=== PATIENT | female | born 1995 | race African-American/Black ===

== ENCOUNTER 2017-07-25 00:27 | Emergency (ER) | payer BC, MEDICAID, SELFPAY ==
--- NOTE | 2017-07-25 08:28 | RAD ---
PA AND LATERAL CHEST XRAY: DATE: 07/25/17. HISTORY: Productive cough for 1 week. COMPARISON: 05/19/13. FINDINGS: Cardiac silhouette and pulmonary vasculature are within normal limits. The lungs are clear. There h as been no interval change from prior study. IMPRESSION: No acute cardiopulmonary process. POS: [facility]
== END 2017-07-25 02:52 | disposition home or self-care (01) ==
LOC: ERS 00:27
DX: J06.9 Acute upper respiratory infection, unspecified (principal); J30.9 Allergic rhinitis, unspecified
CPT/HCPCS: 71020

== ENCOUNTER 2017-07-27 13:59 | Emergency (ER) | payer BC ==
[2017-07-27] MEDS ORDERED: Dexamethasone 10 MG/ML VIAL ONE (15:04)
== END 2017-07-27 15:13 | disposition home or self-care (01) ==
LOC: ERS 13:59
DX: J06.9 Acute upper respiratory infection, unspecified (principal); J45.909 Unspecified asthma, uncomplicated; Z79.899 Other long term (current) drug therapy
CPT/HCPCS: 96372; J1100

== ENCOUNTER 2017-08-27 10:26 | Emergency (ER) | payer BC ==
[2017-08-27] MEDS ORDERED: Ibuprofen 800 MG TAB ONE (11:21)
[2017-08-27] MEDS ORDERED: Acetaminophen 500 MG TAB ONE (11:21)
== END 2017-08-27 11:31 | disposition home or self-care (01) ==
LOC: ERS 10:26
DX: J11.1 Influenza due to unidentified influenza virus with other respiratory manifestations (principal); J45.909 Unspecified asthma, uncomplicated
CPT/HCPCS: 99283

== ENCOUNTER 2017-11-16 12:44 | Emergency (ER) | payer BC ==
[2017-11-16 13:10] LABS: Bilirubin Negative (Negative); Blood, Urine Large (Negative); Clarity TURBID (Clear); Glucose, Urine (Dipstick) Negative (Negative); Leukocyte Large (Negative); Nitrite Negative (Negative); Protein, Urine (Dipstick) 100 mg/dL (Neg-Trace); Specific Gravity, Urine 1.014 (1.002-1.036)
[2017-11-16 13:12] LABS: Bacteria/HPF Rare-Few HPF (None Seen); Hyaline Casts/LPF 0-3 HYALINE CAST LPF (0-3 Hyaline); Pathc Cast-AUWi Flag 0.87 (0-2.49); RBC/HPF GREATER THAN 50-TNTC HPF (0-3); Squamous Epithelial 0-3 HPF (0-3)
[2017-11-16 13:24] LABS: Pregnancy Test - Urine (BHCG) Negative (Negative); Pregu Control Background? CLEAR/WHITE (CLR/WHITE); Pregu Control Bar Appear? YES (CONTROL BAR); Specific Gravity 1.014 (1.002-1.036)
== END 2017-11-16 13:32 | disposition home or self-care (01) ==
LOC: ERS 12:44
DX: N39.0 Urinary tract infection, site not specified (principal); J45.909 Unspecified asthma, uncomplicated
CPT/HCPCS: 81003; 81015; 81025; 87077; 87086; 87186; 99283

== ENCOUNTER 2017-12-02 22:49 | Emergency (ER) | payer BC ==
--- NOTE | 2017-12-02 23:58 | RAD ---
RIGHT WRIST THREE VIEWS: 12/02/17 HISTORY: 22-year-old female with history of right wrist pain for two weeks. IMPRESSION: No fracture, dislocation, or other significant acute osseous abnormality. POS: [facility]
== END 2017-12-03 03:07 | disposition home or self-care (01) ==
LOC: ERS 22:49
DX: M25.531 Pain in right wrist (principal); J45.909 Unspecified asthma, uncomplicated; X50.3XXA Overexertion from repetitive movements, initial encounter; Y99.0 Civilian activity done for income or pay

== ENCOUNTER 2018-03-30 02:03 | Emergency (ER) | payer BC ==
[2018-03-30 02:41] LABS: Bilirubin Negative (Negative); Blood, Urine Negative (Negative); Clarity CLEAR (Clear); Glucose, Urine (Dipstick) Negative (Negative); Leukocyte Negative (Negative); Nitrite Negative (Negative); Protein, Urine (Dipstick) Negative (Neg-Trace); Specific Gravity, Urine 1.005 (1.002-1.036); pH, Urine 7.5 (5.0-9.0)
[2018-03-30 02:49] LABS: Pregnancy Test - Urine (BHCG) Negative (Negative); Pregu Control Background? CLEAR/WHITE (CLR/WHITE); Pregu Control Bar Appear? YES (CONTROL BAR); Specific Gravity 1.005 (1.002-1.036)
[2018-03-30] MEDS ORDERED: Metoclopramide HCl 10 MG/2 ML VIAL ONE (02:54)
[2018-03-30] MEDS ORDERED: Ketorolac Tromethamine 30 MG/ML VIAL ONE (02:54)
== END 2018-03-30 04:36 | disposition home or self-care (01) ==
LOC: ERS 02:03
DX: G43.909 Migraine, unspecified, not intractable, without status migrainosus (principal); J45.909 Unspecified asthma, uncomplicated
CPT/HCPCS: 81003; 81025; 96361; 96374; J1885; J2765

== ENCOUNTER 2018-04-29 23:14 | Emergency (ER) | payer BC ==
[2018-04-29 23:59] LABS: #Basophils 0.1 thou/uL (0.0-0.2); #Eosinphils 0.1 thou/uL (0.0-0.7); #Lymphocytes 3.2 thou/uL (1.20-3.40); #Monocytes 0.5 thou/uL (0.11-0.59); #Neutrophils 4.4 thou/uL (1.40-6.50); %Basophils 1.1 % (0.0-1.0); %Eosinophils 0.9 % (0.0-10.0); %Lymphocytes 38.5 % (28.0-48.0); %Monocytes 6.2 % (0.0-4.0); %Neutrophils 53.4 % (31.0-61.0); Hemoglobin 10.9 g/dL (12.0-16.0); Mean Corpuscular HGB CONC 33.2 g/dL (32.0-36.0); Mean Corpuscular Volume 78.3 fL (78.0-98.0); Mean Platelet Volume 6.6 fL (7.4-10.4); Platelet Count 322 thou/uL (130-400); RBC Distribution Width 11.9 % (11.5-14.5); Red Blood Cell (RBC) Count 4.18 mill/uL (4.00-5.20); White Blood Cell (WBC) Count 8.2 thou/uL (4.8-10.8)
[2018-04-30 00:19] LABS: ALT (SGPT) 12 U/L (8-55); AST (SGOT) 17 U/L (5-34); Albumin 4.3 g/dL (3.5-5.0); Alkaline Phosphatase 86 U/L (40-150); Anion Gap 11 mmol/L (10-20); BUN (Urea Nitrogen) 12 mg/dL (7.0-18.7); Bilirubin, Total 0.2 mg/dL (0.2-1.2); Calc. Creatinine Clearance 0 mL/min (70-130); Calcium 9.2 mg/dL (7.8-10.44); Carbon Dioxide 25 mmol/L (22-29); Chloride 106 mmol/L (98-107); Estimated GFR-MDRD Greater than 90; Globulin 3.2 g/dL (2.4-3.5); Glucose 88 mg/dL (70-105); Lipase 25 U/L (8-78); Potassium 3.6 mmol/L (3.5-5.1); Protein, Total 7.5 g/dL (6.0-8.3); Sodium 138 mmol/L (136-145)
[2018-04-30 02:19] LABS: Bilirubin Negative (Negative); Blood, Urine Negative (Negative); Clarity CLOUDY (Clear); Glucose, Urine (Dipstick) Negative (Negative); Leukocyte Small (Negative); Nitrite Negative (Negative); Protein, Urine (Dipstick) Negative (Neg-Trace); Specific Gravity, Urine 1.031 (1.002-1.036); pH, Urine 5.5 (5.0-9.0)
[2018-04-30 02:21] LABS: Bacteria/HPF Rare-Few HPF (None Seen); Hyaline Casts/LPF 4-6 HYALINE CAST LPF (0-3 Hyaline); Pathc Cast-AUWi Flag 1.59 (0-2.49); RBC/HPF 0-3 HPF (0-3)
[2018-04-30 02:34] LABS: Pregnancy Test - Urine (BHCG) Negative (Negative); Pregu Control Background? CLEAR/WHITE (CLR/WHITE); Pregu Control Bar Appear? YES (CONTROL BAR); Specific Gravity 1.031 (1.002-1.036)
== END 2018-04-30 03:03 | disposition home or self-care (01) ==
LOC: ERS 23:14
DX: R10.12 Left upper quadrant pain (principal); J45.909 Unspecified asthma, uncomplicated
CPT/HCPCS: 36415; 80053; 81003; 81015; 81025; 83690; 85025; 87086; 99284

== ENCOUNTER 2018-09-17 18:06 | Emergency (ER) | payer BC ==
[2018-09-17] MEDS ORDERED: Mag-Al 1200 mg/1200 mg/30 ML UDCUP ONE (18:48)
[2018-09-17] MEDS ORDERED: Lidocaine Viscous Sol 2% 15 ml UD Cup ONE (18:48)
[2018-09-17 19:06] LABS: Bilirubin Negative (Negative); Blood, Urine Negative (Negative); Clarity CLEAR (Clear); Glucose, Urine (Dipstick) Negative (Negative); Leukocyte Moderate (Negative); Nitrite Negative (Negative); Protein, Urine (Dipstick) Negative (Neg-Trace); Specific Gravity, Urine 1.017 (1.002-1.036); Urobilinogen 0.2 mg/dL (0.2-1.0); pH, Urine 6.5 (5.0-9.0)
[2018-09-17 19:09] LABS: Bacteria/HPF None Seen HPF (None Seen); Hyaline Casts/LPF 4-6 HYALINE CAST LPF (0-3 Hyaline); Pathc Cast-AUWi Flag 1.01 (0-2.49); RBC/HPF 0-3 HPF (0-3)
[2018-09-17 19:11] LABS: Pregnancy Test - Urine (BHCG) POSITIVE (Negative); Pregu Control Background? CLEAR/WHITE (CLR/WHITE); Pregu Control Bar Appear? YES (CONTROL BAR); Specific Gravity 1.017 (1.002-1.036)
== END 2018-09-17 19:30 | disposition home or self-care (01) ==
LOC: ERS 18:06
DX: O99.89 Other specified diseases and conditions complicating pregnancy, childbirth and the puerperium (principal); R10.13 Epigastric pain; O23.41 Unspecified infection of urinary tract in pregnancy, first trimester; O99.511 Diseases of the respiratory system complicating pregnancy, first trimester; J45.909 Unspecified asthma, uncomplicated
CPT/HCPCS: 81003; 81015; 81025; 99284

== ENCOUNTER 2018-10-12 17:04 | Emergency (ER) | payer BC ==
[2018-10-12 18:06] LABS: #Basophils 0.1 thou/uL (0.0-0.2); #Lymphocytes 2.2 thou/uL (1.20-3.40); #Monocytes 0.4 thou/uL (0.11-0.59); #Neutrophils 3.9 thou/uL (1.40-6.50); %Basophils 1.5 % (0.0-1.0); %Eosinophils 0.6 % (0.0-10.0); %Lymphocytes 32.8 % (28.0-48.0); %Monocytes 5.8 % (0.0-4.0); %Neutrophils 59.4 % (31.0-61.0); Hemoglobin 11.3 g/dL (12.0-16.0); Mean Corpuscular HGB CONC 32.4 g/dL (32.0-36.0); Mean Corpuscular Hemoglobin 25.7 pg (25.0-35.0); Mean Corpuscular Volume 79.4 fL (78.0-98.0); Mean Platelet Volume 6.7 fL (7.4-10.4); Platelet Count 324 thou/uL (130-400); RBC Distribution Width 12.1 % (11.5-14.5); Red Blood Cell (RBC) Count 4.38 mill/uL (4.00-5.20); White Blood Cell (WBC) Count 6.6 thou/uL (4.8-10.8)
[2018-10-12 18:13] LABS: Bilirubin Negative (Negative); Blood, Urine Negative (Negative); Clarity CLEAR (Clear); Glucose, Urine (Dipstick) Negative (Negative); Leukocyte Small (Negative); Nitrite Negative (Negative); Protein, Urine (Dipstick) Negative (Neg-Trace); Specific Gravity, Urine 1.031 (1.002-1.036); Urobilinogen 0.2 mg/dL (0.2-1.0); pH, Urine 5.5 (5.0-9.0)
[2018-10-12 18:16] LABS: Bacteria/HPF None Seen HPF (None Seen); Hyaline Casts/LPF 4-6 HYALINE CAST LPF (0-3 Hyaline); Pathc Cast-AUWi Flag 1.01 (0-2.49); RBC/HPF 0-3 HPF (0-3)
[2018-10-12 18:31] LABS: ALT (SGPT) 12 U/L (8-55); AST (SGOT) 15 U/L (5-34); Albumin 4.2 g/dL (3.5-5.0); Alkaline Phosphatase 69 U/L (40-150); Anion Gap 13 mmol/L (10-20); BUN (Urea Nitrogen) 7 mg/dL (7.0-18.7); Bilirubin, Total 0.4 mg/dL (0.2-1.2); Calc. Creatinine Clearance 0 mL/min (70-130); Calcium 9.5 mg/dL (7.8-10.44); Carbon Dioxide 21 mmol/L (22-29); Chloride 107 mmol/L (98-107); Estimated GFR-MDRD Greater than 90; Globulin 3.2 g/dL (2.4-3.5); Glucose 78 mg/dL (70-105); Lipase 17 U/L (8-78); Potassium 3.7 mmol/L (3.5-5.1); Protein, Total 7.4 g/dL (6.0-8.3); Sodium 137 mmol/L (136-145)
== END 2018-10-12 19:36 | disposition home or self-care (01) ==
LOC: ERS 17:04
DX: O99.89 Other specified diseases and conditions complicating pregnancy, childbirth and the puerperium (principal); R10.9 Unspecified abdominal pain; R11.0 Nausea; O99.511 Diseases of the respiratory system complicating pregnancy, first trimester; J45.909 Unspecified asthma, uncomplicated; Z3A.08 8 weeks gestation of pregnancy
CPT/HCPCS: 36415; 80053; 81003; 81015; 83690; 84702; 85025; 86900; 86901; 99284

== ENCOUNTER 2019-05-08 13:41 | Day surgery (SDC) | payer OTHER ==
[2019-05-08 14:21] VITALS: BMI 40.4
--- NOTE | 2019-05-09 07:55 | SS ---
DATE OF ADMISSION: 05/08/2019 DATE OF DISCHARGE: 05/08/2019 REGULAR PHYSICIAN: Ebony Gunderson DO. EVALUATING PHYSICIAN: Carlos Anderson MD CHIEF COMPLAINT: Possible leakage of fluid at home. HISTORY OF PRESENT ILLNESS: Ms. Segundo is a 23-year-old black G1, P0, estimated date of confinement 05/22/2019, who presents complaining of vaginal wetness for which she was suspicious she was leaking starting at 12:00 pm today. She denies bleeding or uterine contractions. Her care has been with Dr. Gunderson and has been without complications. PAST MEDICAL HISTORY: None. PAST SURGICAL HISTORY: None. CURRENT MEDICATIONS: vitamins. ALLERGIES: NO KNOWN ALLERGIES. SOCIAL HISTORY: Denies tobacco, alcohol, or drug use. FAMILY HISTORY: Unremarkable. REVIEW OF SYSTEMS: Denies nausea, vomiting, fever, chills, vaginal bleeding, or decreased movement. PHYSICAL EXAMINATION: VITAL SIGNS: Stable and she is afebrile in triage. GENERAL: She is pleasant. She is in no acute distress. ABDOMEN: Soft, nontender, and gravid. AmniSure obtained upon initial evaluation returns negative. Sterile speculum exam shows a closed cervix with no evidence of amniotic fluid, but there is a copious amount of clumpy white discharge consistent with yeast. ASSESSMENT: 1. 38-week intrauterine . 2. No evidence of ruptured membranes. 3. Ileana vaginitis. PLAN: The patient will be dismissed with precautions. She was given a prescription for Diflucan 150 mg one p.o. x1 with one refill. She voiced understanding of her discharge instructions and was sent home in good condition. Job ID: [id number]
== END 2019-05-08 16:45 ==
LOC: L&D/OP 13:41
PROVIDERS: ATTEND Obstetrics & Gynecology
DX: O98.813 Other maternal infectious and parasitic diseases complicating pregnancy, third trimester (principal); B37.3 Candidiasis of vulva and vagina; Z3A.38 38 weeks gestation of pregnancy

== ENCOUNTER 2019-05-10 06:03 | Inpatient (IN) | payer OTHER ==
[2019-05-08 15:00] LABS: Amnisure Internal Control QC ACCEPTABLE (ACCEPTABLE); Amnisure Test No Membranes Rupture (No Rupture)
[~2019-05-10 06:03] MED LIST: hydrALAZINE 20 MG/ML VIAL SLOW IVP PRN
[2019-05-10] MEDS ORDERED: hydrALAZINE 20 MG/ML VIAL SLOW IVP PRN (06:36)
[2019-05-10] MEDS ORDERED: HYDROcodone/Acetaminophen 5/325 mg Tablet PO PRN (06:36)
[2019-05-10] MEDS ORDERED: Acetaminophen 500 MG TAB PO PRN (06:36)
[2019-05-10] MEDS ORDERED: Diphenoxylate HCl/Atropine Tablet PO PRN ×2 (06:36→23:41)
[2019-05-10] MEDS ORDERED: Ibuprofen 800 MG TAB PO PRN (06:36)
[2019-05-10] MEDS ORDERED: Promethazine HCl 25 MG/ML VIAL IM PRN ×2 (06:36→17:50)
[2019-05-10] MEDS ORDERED: Methylergonovine 0.2 MG/ML VIAL IM PRN (06:36)
[2019-05-10] MEDS ORDERED: Carboprost 250 MCG/ML AMP IM PRN (06:36)
[2019-05-10] MEDS ORDERED: Misoprostol 200 MCG TAB PR PRN (06:36)
[2019-05-10] MEDS ORDERED: Lidocaine 1% (PF) 30 ML VIAL SC PRN (06:36)
[2019-05-10] MEDS ORDERED: Ondansetron PF 4 MG/2 ML Vial IVP PRN ×2 (06:36→17:50)
[2019-05-10] MEDS: Lactated Ringer's 1,000 ML IV SCH ×2 (07:05→15:06)
[2019-05-10 07:32] LABS: Hemoglobin 10.3 g/dL (12.0-16.0); Mean Corpuscular HGB CONC 33.1 g/dL (32.0-36.0); Mean Corpuscular Volume 78.5 fL (78.0-98.0); Mean Platelet Volume 7.2 fL (7.4-10.4); Platelet Count 274 thou/uL (130-400); RBC Distribution Width 14.6 % (11.5-14.5); Red Blood Cell (RBC) Count 3.96 mill/uL (4.20-5.40); White Blood Cell (WBC) Count 8.6 thou/uL (4.8-10.8)
[2019-05-10 07:35] VITALS: BMI 43.6
[2019-05-10] MEDS: NS w/ Oxytocin 10 units 500 ML IV SCH (07:50)
[2019-05-10 08:27] LABS: HBSAg Index 0.15 S/CO (0-0.99); HIV (1/2) Antibody/Antigen Non-Reactive (NonReactive); HIV 1/2 INDEX 0.05 S/CO (<1.00); Hep B Surf Ag Non-Reactive S/CO (NonReactive)
--- NOTE | 2019-05-10 08:44 | PDOC.LDHP ---
Labor and Delivery H&P Chief complaint: scheduled induction HPI: 23 yo G! @ 38w2d by LMP c/w 9 week CRL who presents for IOL due to GHTN. Dilipans placed yesterday and removed this morning. Antepartum course also complicated by Obesity, carrier of alpha thalassemia ([facility] will not have testing ) Due date: 05/22/19 Dating criteria: last menstrual period Grav: 1 Para: 0 Current complications: gestational hypertension Abnormal US findings: No Past Medical History: Asthma Obesity Current medications: pre-mukesh vitamins Previous surgical history: none Allergies/Adverse Reactions: Allergies Allergy/AdvReac Type Severity Reaction Status Date / Time No Known Drug Allergies Allergy Verified 05/08/19 14:22 Social history: none - Physical Exam Abnormal vital signs: mild HTN, no severe range BPs General: NAD Heart: RRR Lungs: nonlabored breathing Abdomen: gravid Extremeties: trace edema FHT: category 1 (150s, mod katlyn, +accels, no decels) [place] contractions every: irregular - Vaginal Exam cm dilated: 2 (per RN; dilipans also removed ) Effacement: 25% Station: -3 - OB Labs Blood type: O RH: positive Antibody Screen: negative HIV: negative RPR: negative HEPSAg: negative 1 hour GCT: negative GBS: unknown Urine drug screen: negative Rubella: immune Additional Labs: Carrier screening: silent carrier alpha thalassemia. - Assessment 38w2d IUP GHTN Obesity Silent carrier of alpha thalassemia - Plan Plan: admit to L&D, informed consent obtained, anesthesia consult for pain management -: Labs done Monitor BPs Start pitocin, s/p dilipans
[2019-05-10 08:58] LABS: Syphilis Antibody Index 2.07 S/CO (<1.00 Non-Reactive)
[2019-05-10 10:00] LABS: ALT (SGPT) 12 U/L (8-55); AST (SGOT) 15 U/L (5-34); Albumin 3.4 g/dL (3.5-5.0); Alkaline Phosphatase 183 U/L (40-150); Anion Gap 15 mmol/L (10-20); BUN (Urea Nitrogen) 7 mg/dL (7.0-18.7); Bilirubin, Total 0.2 mg/dL (0.2-1.2); Calc. Creatinine Clearance 226 mL/min (70-130); Calcium 9.1 mg/dL (7.8-10.44); Carbon Dioxide 21 mmol/L (22-29); Chloride 108 mmol/L (98-107); Estimated GFR-MDRD Greater than 90; Globulin 2.6 g/dL (2.4-3.5); Glucose 97 mg/dL (70-105); Potassium 3.9 mmol/L (3.5-5.1); Sodium 140 mmol/L (136-145)
[2019-05-10] MEDS ORDERED: Bupivacaine/Epinephrine 0.25% 30 ML VIAL ONE (10:00)
[2019-05-10 11:50] LABS: Syphilis Antibody INDETERMINATE (Nonreactive)
--- NOTE | 2019-05-10 12:53 | PDOC.LDPN ---
Labor & Delivery Progress Note - Subjective Subjective: comfortable - Objective Vital signs reviewed and normal: yes General: NAD Uterine fundus: non tender Dilation: 3 Effacement: 50% Station: -2 FHT: category 1 (140s, mod katlyn, + accels, no decels ) [place] contractions every: q 3 min when assessing AROM: clear fluid IUPC placed: yes - Assessment (1) 38 weeks gestation of Code(s): Z3A.38 - 38 WEEKS GESTATION OF Current Visit: Yes Status : Acute (2) Gestational hypertension Code(s): O13.9 - GESTATIONAL HTN W/O SIGNIFICANT PROTEINURIA, UNSP TRIMESTER Current Visit: Yes Status: Acute (3) Encounter for induction of labor Code(s): Z34.90 - ENCNTR FOR SUPRVSN OF NORMAL , UNSP, UNSP TRIMESTER Current Visit: Yes Status: Acute Plan: continue plan of care, pitocin for augmentation
[2019-05-10] MEDS: Butorphanol Tartrate 1 MG/ML VIAL SLOW IVP PRN ×2 (13:49→15:09)
[2019-05-10] MEDS ORDERED: Lidocaine 1.5%/Epinephrine 1:200,000 5 ML AMPUL IJ ONE (16:31)
[2019-05-10] MEDS ORDERED: Fentanyl 4 mcg/Bup 0.1% Cadd 100 ML ONE (16:31)
--- NOTE | 2019-05-10 16:34 | PDOC.LDPN ---
Labor & Delivery Progress Note - Subjective Subjective: painful contractions - Objective Vital signs reviewed and normal: yes General: NAD Uterine fundus: non tender Dilation: 4 Effacement: 75% Station: -1 FHT: category 1 (130s, mod katlyn, +accels, no decels) [place] contractions every: q1-2 min with adequate MVUs x 4 hrs - Assessment (1) 38 weeks gestation of Code(s): Z3A.38 - 38 WEEKS GESTATION OF Current Visit: Yes Status : Acute (2) Gestational hypertension Code(s): O13.9 - GESTATIONAL HTN W/O SIGNIFICANT PROTEINURIA, UNSP TRIMESTER Current Visit: Yes Status: Acute (3) Encounter for induction of labor Code(s): Z34.90 - ENCNTR FOR SUPRVSN OF NORMAL , UNSP, UNSP TRIMESTER Current Visit: Yes Status: Acute Plan: continue plan of care, pitocin for augmentation -: Desires an epidural now. Slow progress made, however, effacement now improved. Monitor progress
[2019-05-10] MEDS ORDERED: ePHEDrine/0.9% NaCl/PF SYRINGE 50 mg/10 ml SLOW IVP PRN (17:50)
[2019-05-10] MEDS ORDERED: diphenhydrAMINE 50 MG/ML VIAL IVP PRN (17:50)
[2019-05-10] MEDS ORDERED: Naloxone HCl 0.4 mg/ml Vial IVP PRN ×2 (17:50)
[2019-05-10] MEDS ORDERED: Lactated Ringer's 500 ML IV PRN (17:50)
[2019-05-10] MEDS ORDERED: Fentanyl 4 mcg/Bupivacaine 0.1% Cassette 100 ML EPIDURAL SCH (18:00)
[2019-05-10] MEDS ORDERED: Communication Order-Pharmacy FS SCH (18:00)
[2019-05-10] MEDS: NS / Oxytocin 40 units/1000ml 1,000 ML IV PRN (23:30)
--- NOTE | 2019-05-10 23:58 | PDOC.OPDEL ---
OB Operative/Delivery Note Delivery Dr/Surgeon: Ebony Gunderson DO Pre-Delivery Diagnosis: medically indicated induction Procedure/Post Delivery Dx: spontaneous vaginal delivery Weeks gestation: 38 Anesthesia: epidural - Findings A Sex: male - 1 min: 8 - 5 min: 9 - Additional Findings/Plan Placenta delivered: spontaneous Repaired Obstetrical Laceration: 2nd degree Estimated blood loss: QBL 639 cc Compilations/Other Findings: Infant in CRISTAL position Uterine atony noted after delivery. Resolved with uterine massage, pitocin, Hemabate and cytotec. Post delivery plan: routine recovery
[2019-05-11] MEDS: Lactated Ringer's 1,000 ML IV SCH ×3 (01:55→22:43)
[2019-05-11] MEDS: NS / Oxytocin 40 units/1000ml 1,000 ML IV PRN (01:57)
[2019-05-11] MEDS ORDERED: NS / Oxytocin 40 units/1000ml 1,000 ML IV SCH (01:59)
[2019-05-11] MEDS ORDERED: hydrALAZINE 20 MG/ML VIAL SLOW IVP PRN (01:59)
[2019-05-11] MEDS ORDERED: Lanolin Ointment 7 GM TUBE TOP PRN (01:59)
[2019-05-11] MEDS ORDERED: Preparation H Ointment 28 GM TUBE PR PRN (01:59)
[2019-05-11] MEDS ORDERED: Zolpidem Tartrate 5 MG TAB PO PRN (01:59)
[2019-05-11] MEDS ORDERED: Bisacodyl 10 MG SUPP PR PRN (01:59)
[2019-05-11] MEDS ORDERED: Benzocaine-Menthol 82.5 ML CAN TOP PRN (01:59)
[2019-05-11] MEDS ORDERED: diphenhydrAMINE 25 MG CAP PO PRN (01:59)
[2019-05-11 05:28] LABS: #Lymphocytes 1.3 thou/uL (1.20-3.40); #Monocytes 1.2 thou/uL (0.11-0.59); #Neutrophils 15.6 thou/uL (1.40-6.50); %Basophils 0.1 % (0.0-1.0); %Eosinophils 0.2 % (0.0-10.0); %Lymphocytes 7.1 % (21.0-51.0); %Monocytes 6.6 % (0.0-10.0); %Neutrophils 86.1 % (42.0-75.0); Hemoglobin 7.6 g/dL (12.0-16.0); Mean Corpuscular HGB CONC 32.8 g/dL (32.0-36.0); Mean Corpuscular Hemoglobin 25.6 pg (27.0-31.0); Mean Corpuscular Volume 78.1 fL (78.0-98.0); Mean Platelet Volume 6.9 fL (7.4-10.4); Platelet Count 250 thou/uL (130-400); RBC Distribution Width 14.4 % (11.5-14.5); Red Blood Cell (RBC) Count 2.98 mill/uL (4.20-5.40); White Blood Cell (WBC) Count 18.1 thou/uL (4.8-10.8)
[2019-05-11] MEDS: Ibuprofen 800 MG TAB PO SCH ×3 (06:09→22:44)
[2019-05-11] MEDS: NS w/ Oxytocin 10 units 500 ML IV SCH (07:14)
--- NOTE | 2019-05-11 08:25 | PDOC.PP ---
Post Progress Note Post Day #: 1 Subjective: Doing well. reports moderate lochia, no clots. Denies any dizziness, SOB or CP. Pt has ambulated. Voiding. PO intake tolerated: yes Flatus: yes Ambulation: yes Vital Signs (12 hours) Temp Pulse Resp BP BP Pulse Ox 05/11/19 08:09 98.5 F 125 H 20 133/61 100 05/11/19 04:00 98.3 F 116 H 20 136/65 05/11/19 02:40 98.5 F 124 H 20 114/53 L 05/11/19 01:40 99.8 F H 132 H 20 121/57 L 99 Weight Weight 262 lb - Physical Examination General: NAD Deviation from normal: tachycardic, HR 112 on my assessment this AM. Respiratory: non-labored breathing Abdominal: no distention, appropriately TTP Fundus firm & at: below umbilicus Extremities: negative homans (B) Neurological: no gross focal deficits Psychiatric: A&Ox3, normal affect Result Diagrams: 05/11/19 05:11 05/10/19 07:24 Additional Labs: Post Labs Blood Type O POSITIVE 05/10/19 07:23 Hep Bs Antigen Non-Reactive S/CO (NonReactive) 05/10/19 07:23 (1) 38 weeks gestation of Code(s): Z3A.38 - 38 WEEKS GESTATION OF Status: Resolved (2) Gestational hypertension Code(s): O13.9 - GESTATIONAL HTN W/O SIGNIFICANT PROTEINURIA, UNSP TRIMESTER Status: Resolved (3) Encounter for induction of labor Code(s): Z34.90 - ENCNTR FOR SUPRVSN OF NORMAL , UNSP, UNSP TRIMESTER Status: Resolved (4) Vaginal delivery Code(s): O80 - ENCOUNTER FOR FULL-TERM UNCOMPLICATED DELIVERY Status: Acute (5) Anemia Code(s): D64.9 - ANEMIA, UNSPECIFIED Status: Acute Qualifiers: Other causes of anemia: acute posthemorrhagic - Assessment/Plan PPD1 Tachycardia noted. Suspect related to post anemia. Hbg 7.6, recheck CBC at 1100. Denies any CV/resp sx. Iron supplement. Monitor I&Os and give IVF bolus this AM. Continue post care.
[2019-05-11] MEDS ORDERED: Lactated Ringer's 500 ML IV SCH (08:30)
[2019-05-11] MEDS: Ferrous Sulfate 325 MG TAB PO SCH ×2 (08:34→17:36)
[2019-05-11] MEDS: Prenatal Vitamin 1 TAB PO SCH (08:34)
[2019-05-11] MEDS: Docusate Calcium (SURFAK) 240 MG CAP PO SCH ×2 (08:35→22:44)
[2019-05-11 11:21] LABS: #Lymphocytes 1.4 thou/uL (1.20-3.40); #Monocytes 1.5 thou/uL (0.11-0.59); #Neutrophils 14.7 thou/uL (1.40-6.50); %Basophils 0.1 % (0.0-1.0); %Eosinophils 0.1 % (0.0-10.0); %Lymphocytes 7.8 % (21.0-51.0); %Monocytes 8.4 % (0.0-10.0); %Neutrophils 83.6 % (42.0-75.0); Hemoglobin 7.3 g/dL (12.0-16.0); Mean Corpuscular HGB CONC 32.6 g/dL (32.0-36.0); Mean Corpuscular Hemoglobin 25.9 pg (27.0-31.0); Mean Corpuscular Volume 79.5 fL (78.0-98.0); Mean Platelet Volume 6.9 fL (7.4-10.4); Platelet Count 240 thou/uL (130-400); RBC Distribution Width 14.4 % (11.5-14.5); Red Blood Cell (RBC) Count 2.82 mill/uL (4.20-5.40); White Blood Cell (WBC) Count 17.5 thou/uL (4.8-10.8)
[2019-05-12] MEDS: Ibuprofen 800 MG TAB PO SCH ×3 (05:48→21:25)
[2019-05-12] MEDS: Milk Of Magnesia 30 ML UDCUP PO PRN (05:50)
[2019-05-12 05:59] LABS: #Eosinphils 0.1 thou/uL (0.0-0.7); #Lymphocytes 2.5 thou/uL (1.20-3.40); #Monocytes 0.8 thou/uL (0.11-0.59); #Neutrophils 8.3 thou/uL (1.40-6.50); %Basophils 0.1 % (0.0-1.0); %Eosinophils 0.5 % (0.0-10.0); %Lymphocytes 21.5 % (21.0-51.0); %Monocytes 6.4 % (0.0-10.0); %Neutrophils 71.4 % (42.0-75.0); Hemoglobin 6.8 g/dL (12.0-16.0); Mean Corpuscular HGB CONC 32.4 g/dL (32.0-36.0); Mean Corpuscular Volume 80.4 fL (78.0-98.0); Mean Platelet Volume 6.7 fL (7.4-10.4); Platelet Count 242 thou/uL (130-400); RBC Distribution Width 14.7 % (11.5-14.5); Red Blood Cell (RBC) Count 2.61 mill/uL (4.20-5.40); White Blood Cell (WBC) Count 11.7 thou/uL (4.8-10.8)
--- NOTE | 2019-05-12 08:19 | PDOC.PP ---
Post Progress Note Post Day #: 1 Subjective: Pt has tachycardia. Pt reports lochia is now light. She denies any SOB, CP. She is ambulating some and has not been very dizzy. receiving phototherapy. PO intake tolerated: yes Flatus: yes Ambulation: yes Vital Signs (12 hours) Temp Pulse Resp BP Pulse Ox 05/12/19 05:43 98.7 F 100 16 126/67 05/12/19 04:55 105 H 05/12/19 01:03 113 H 05/12/19 00:35 99.1 F 136 H 16 118/50 L 97 05/11/19 22:44 111 H Weight Weight 262 lb - Physical Examination General: NAD Cardiovascular: no m/r/g Deviation from normal: tachycardia Respiratory: non-labored breathing Abdominal: no distention, appropriately TTP Fundus firm & at: below umbilicus Extremities: negative homans (B) Neurological: no gross focal deficits Psychiatric: A&Ox3, normal affect Result Diagrams: 05/12/19 05:37 05/10/19 07:24 Additional Labs: Post Labs Blood Type O POSITIVE 05/10/19 07:23 Hep Bs Antigen Non-Reactive S/CO (NonReactive) 05/10/19 07:23 (1) 38 weeks gestation of Code(s): Z3A.38 - 38 WEEKS GESTATION OF Status: Resolved (2) Gestational hypertension Code(s): O13.9 - GESTATIONAL HTN W/O SIGNIFICANT PROTEINURIA, UNSP TRIMESTER Status: Resolved (3) Encounter for induction of labor Code(s): Z34.90 - ENCNTR FOR SUPRVSN OF NORMAL , UNSP, UNSP TRIMESTER Status: Resolved (4) Vaginal delivery Code(s): O80 - ENCOUNTER FOR FULL-TERM UNCOMPLICATED DELIVERY Status: Acute (5) Anemia Code(s): D64.9 - ANEMIA, UNSPECIFIED Status: Acute Qualifiers: Other causes of anemia: acute posthemorrhagic - Assessment/Plan PPD2 Tachycardia slightly improved this AM when resting, however, HR 120s-130s intermittently. EKG sinus tachycardia. UOP wnl. Hbg 6.8. Due to tachycardia and anemia, recommend transfusion. Transfuse 1 unit today. CBC post transfusion. Plan for d/c this afternoon vs AM with
[2019-05-12] MEDS: Docusate Calcium (SURFAK) 240 MG CAP PO SCH ×2 (09:01→21:25)
[2019-05-12] MEDS: Prenatal Vitamin 1 TAB PO SCH (09:01)
[2019-05-12] MEDS: Ferrous Sulfate 325 MG TAB PO SCH ×2 (09:01→17:21)
[2019-05-12] MEDS: Acetaminophen 325 MG TAB PO PRN ×2 (09:23→20:13)
[2019-05-12 15:48] LABS: #Eosinphils 0.2 thou/uL (0.0-0.7); #Lymphocytes 2.3 thou/uL (1.20-3.40); #Monocytes 0.8 thou/uL (0.11-0.59); #Neutrophils 9.2 thou/uL (1.40-6.50); %Basophils 0.2 % (0.0-1.0); %Eosinophils 1.2 % (0.0-10.0); %Lymphocytes 18.4 % (21.0-51.0); %Monocytes 6.2 % (0.0-10.0); Hemoglobin 7.5 g/dL (12.0-16.0); Mean Corpuscular Hemoglobin 27.2 pg (27.0-31.0); Mean Corpuscular Volume 80.2 fL (78.0-98.0); Mean Platelet Volume 6.9 fL (7.4-10.4); Platelet Count 258 thou/uL (130-400); RBC Distribution Width 14.6 % (11.5-14.5); Red Blood Cell (RBC) Count 2.77 mill/uL (4.20-5.40); White Blood Cell (WBC) Count 12.5 thou/uL (4.8-10.8)
--- NOTE | 2019-05-12 16:52 | EKG ---
Test Reason : STAT Blood Pressure : / mmHG Vent. Rate : 116 BPM Atrial Rate : 116 BPM P-R Int : 150 ms QRS Dur : 072 ms QT Int : 310 ms P-R-T Axes : 064 048 034 degrees QTc Int : 430 ms Sinus tachycardia Otherwise normal ECG When compared with ECG of 03-OCT-2013 02:09, PREVIOUS ECG IS PRESENT Confirmed by DR. Ana Cristina GARG ([id number]) on 05/12/2019 4:52:37 PM Referred By: CIERRA Confirmed By:DR. Ana Cristina GARG
[2019-05-12] MEDS: NS w/ Oxytocin 10 units 500 ML IV SCH (20:08)
[2019-05-12] MEDS: HYDROcodone/Acetaminophen 5/325 mg Tablet PO PRN (20:13)
[2019-05-13] MEDS: Ibuprofen 800 MG TAB PO SCH ×2 (05:45→14:12)
[2019-05-13] MEDS: Milk Of Magnesia 30 ML UDCUP PO PRN (05:46)
[2019-05-13] MEDS: Docusate Calcium (SURFAK) 240 MG CAP PO SCH (09:20)
[2019-05-13] MEDS: Ferrous Sulfate 325 MG TAB PO SCH (09:20)
[2019-05-13] MEDS: Prenatal Vitamin 1 TAB PO SCH (09:20)
[2019-05-13 09:41] VITALS: TEMP 98.3
[2019-05-13] MEDS: NS w/ Oxytocin 10 units 500 ML IV SCH (10:36)
--- NOTE | 2019-05-13 10:53 | DIS ---
DATE OF ADMISSION: 05/10/2019 DATE OF DISCHARGE: 05/13/2019 ADMITTING DIAGNOSES: 1. Intrauterine at 38 weeks. 2. Gestational hypertension. 3. Chronic anemia. DISCHARGE DIAGNOSES: 1. Intrauterine at 38 weeks. 2. Gestational hypertension. 3. Acute blood loss anemia. PROCEDURES: Term spontaneous vaginal delivery and 1 unit of packed red blood cells blood transfusion. HOSPITAL COURSE: The patient is a 23-year-old female admitted to the hospital at 38 weeks' gestation for induction of labor for gestational hypertension. Her labor course was complicated by atony requiring uterine massage, Pitocin, Hemabate, and Cytotec. Blood loss was quantified at 639 mL. Her course was complicated by symptomatic anemia with a hemoglobin of 6.8, hematocrit 21, and platelets of 242,000. She has received 1 unit of packed red blood cells and reports that she is feeling much better. Today is postop day 3. Today, she reports she is tolerating p.o., voiding on her own, having decreased lochia, and good pain control and she reports ambulating fine without symptoms. PHYSICAL EXAMINATION: VITAL SIGNS: Today; blood pressure is 135/72, temperature 98.4, pulse of 105, and respiratory rate of 18. GENERAL: She appears to be in no acute distress. She is alert and oriented, cooperative and pleasant to interact with. HEENT: Head is normocephalic, atraumatic. LUNGS: Clear to auscultation bilaterally. HEART: Has a regular rate and rhythm. ABDOMEN: Firm. EXTREMITIES: Nontender with symmetrical edema. The patient is being discharged to home. She has instructions to follow up with Dr. Gunderson in 6 weeks or sooner if she experiences increasing fever, pain, or bleeding. She will continue with her vitamins and iron. We did discuss optimally to be taking iron to maximize absorption. Job ID: [id number]
[2019-05-13 12:56] VITALS: BP 129/70
[2019-05-13] MEDS: HYDROcodone/Acetaminophen 5/325 mg Tablet PO PRN (16:28)
[2019-05-13] MEDS: Acetaminophen 325 MG TAB PO PRN (16:29)
== END 2019-05-13 16:35 | disposition home or self-care (01) | DRG 806 ==
LOC: L&D 06:03 → 3SE 05-11 01:41 → EDSTATUS 05-22 06:01
PROVIDERS: ADMIT Obstetrics & Gynecology; ATTEND Obstetrics & Gynecology
PROC: 10E0XZZ Delivery of Products of Conception, External Approach (ICD-10-PCS; principal; 2019-05-10)
PROC: 0KQM0ZZ Repair Perineum Muscle, Open Approach (ICD-10-PCS; 2019-05-10)
PROC: 10907ZC Drainage of Amniotic Fluid, Therapeutic from Products of Conception, Via Natural or Artificial Opening (ICD-10-PCS; 2019-05-10)
PROC: 30233N1 Transfusion of Nonautologous Red Blood Cells into Peripheral Vein, Percutaneous Approach (ICD-10-PCS; 2019-05-12)
DX: O13.4 Gestational [pregnancy-induced] hypertension without significant proteinuria, complicating childbirth (principal); D62 Acute posthemorrhagic anemia; Z37.0 Single live birth; O99.02 Anemia complicating childbirth; O99.214 Obesity complicating childbirth; E66.9 Obesity, unspecified; D56.3 Thalassemia minor; O62.2 Other uterine inertia; O70.1 Second degree perineal laceration during delivery; Z3A.38 38 weeks gestation of pregnancy; R00.0 Tachycardia, unspecified; O90.89 Other complications of the puerperium, not elsewhere classified
CPT/HCPCS: 36415; 36430; 51702; 80053; 82570; 84112; 84156; 84550; 85025; 85027; 86593; 86780; 86850; 86900; 86901; 87081; 87340; 87389; 93005; 93010; J0595; J2001; J2590; J3490; P9016; Q0163

== ENCOUNTER 2019-05-16 16:11 | Emergency (ER) | payer OTHER ==
[2019-05-16] MEDS ORDERED: Acetaminophen 500 MG TAB ONE (16:25)
[2019-05-16] MEDS ORDERED: cefTRIAXone\\ROCEPHIN 1 GM VIAL ONE ×2 (16:25→18:14)
--- NOTE | 2019-05-16 16:52 | RAD ---
EXAM: CHEST ONE VIEW HISTORY: Breast pain COMPARISON: None FINDINGS: The cardiac silhouette and pulmonary vasculature is within normal limits. The lungs are clear. The os seous structures are intact. IMPRESSION: No acute cardiopulmonary process.
[2019-05-16 16:59] LABS: #Eosinphils 0.2 thou/uL (0.0-0.7); #Lymphocytes 2.3 thou/uL (1.20-3.40); #Monocytes 0.9 thou/uL (0.11-0.59); #Neutrophils 8.9 thou/uL (1.40-6.50); %Basophils 0.4 % (0.0-1.0); %Eosinophils 1.4 % (0.0-10.0); %Lymphocytes 19.1 % (21.0-51.0); %Monocytes 6.9 % (0.0-10.0); %Neutrophils 72.2 % (42.0-75.0); Hemoglobin 9.3 g/dL (12.0-16.0); Mean Corpuscular HGB CONC 33.4 g/dL (32.0-36.0); Mean Corpuscular Hemoglobin 26.5 pg (27.0-31.0); Mean Corpuscular Volume 79.3 fL (78.0-98.0); Mean Platelet Volume 6.1 fL (7.4-10.4); Platelet Count 411 thou/uL (130-400); RBC Distribution Width 14.4 % (11.5-14.5); White Blood Cell (WBC) Count 12.3 thou/uL (4.8-10.8)
[2019-05-16 17:25] LABS: ALT (SGPT) 19 U/L (8-55); AST (SGOT) 19 U/L (5-34); Albumin 3.8 g/dL (3.5-5.0); Alkaline Phosphatase 141 U/L (40-150); Anion Gap 12 mmol/L (10-20); BUN (Urea Nitrogen) 11 mg/dL (7.0-18.7); Bilirubin, Total 0.2 mg/dL (0.2-1.2); Calc. Creatinine Clearance 0 mL/min (70-130); Calcium 9.2 mg/dL (7.8-10.44); Carbon Dioxide 21 mmol/L (22-29); Chloride 108 mmol/L (98-107); Estimated GFR-MDRD Greater than 90; Globulin 3.4 g/dL (2.4-3.5); Glucose 107 mg/dL (70-105); Potassium 3.9 mmol/L (3.5-5.1); Protein, Total 7.2 g/dL (6.0-8.3); Sodium 137 mmol/L (136-145)
[2019-05-16 17:51] LABS: Bacteria/HPF 4+ HPF (None Seen); Bilirubin Negative (Negative); Blood, Urine 3+ (Negative); Clarity Extra Turbid (Clear); Glucose, Urine (Dipstick) Normal (Negative); Leukocyte 500 Leu/uL (Negative); Nitrite Negative (Negative); Protein, Urine (Dipstick) 100 mg/dL (Neg-Trace); RBC/HPF Greater than 50 HPF (0-3); Transitional Epithelial 0-3 HPF (None Seen); Urobilinogen Normal mg/dL (Less than 2); WBC/HPF Greater than 50 HPF (0-3)
== END 2019-05-16 19:10 | disposition home or self-care (01) ==
LOC: ERS 16:11
DX: N61.0 Mastitis without abscess (principal); N39.0 Urinary tract infection, site not specified
CPT/HCPCS: 71045; 80053; 81003; 81015; 83605; 85025; 87040; 87077; 87086; 96361; 96365; 96366; J0696

== ENCOUNTER 2019-07-05 07:26 | Emergency (ER) | payer OTHER | END 2019-07-05 07:50 | disposition home or self-care (01) | LOC: ERS 07:26 | DX: L25.9 Unspecified contact dermatitis, unspecified cause (principal); H10.13 Acute atopic conjunctivitis, bilateral | CPT/HCPCS: 99283 ==

== ENCOUNTER 2019-07-07 07:07 | Emergency (ER) | payer OTHER | END 2019-07-07 08:01 | disposition home or self-care (01) | LOC: ERS 07:07 | DX: H10.9 Unspecified conjunctivitis (principal); J45.909 Unspecified asthma, uncomplicated | CPT/HCPCS: 99283 ==

== ENCOUNTER 2019-11-25 17:48 | Emergency (ER) | payer OTHER | END 2019-11-25 18:39 | disposition home or self-care (01) | LOC: ERS 17:48 | DX: J20.9 Acute bronchitis, unspecified (principal); I10 Essential (primary) hypertension; J45.909 Unspecified asthma, uncomplicated | CPT/HCPCS: 87804; 99283 ==

== ENCOUNTER 2019-11-28 12:14 | Emergency (ER) | payer OTHER ==
--- NOTE | 2019-11-28 12:36 | RAD ---
EXAM: Portable chest PROVIDED CLINICAL HISTORY: Cough COMPARISON: 05/16/2019 FINDINGS: Cardiac and mediastinal silhouette is within normal limits. No focal consolidation, pleural fluid or pneumothorax evident. IMPRESSION: No evidence for an acute cardiopulmonary process.
== END 2019-11-28 13:47 | disposition home or self-care (01) ==
LOC: ERS 12:14
DX: R05 Cough (principal)
CPT/HCPCS: 71045; U0001

== ENCOUNTER 2020-03-03 19:41 | Emergency (ER) | payer SELFPAY | END 2020-03-03 20:21 | disposition home or self-care (01) | LOC: ERS 19:41 | DX: M54.5 Low back pain (principal) ==

== ENCOUNTER 2021-06-09 15:18 | Emergency (ER) | payer SELFPAY ==
[2021-06-09] MEDS ORDERED: Ketorolac Tromethamine 30 MG/ML VIAL ONE (17:04)
== END 2021-06-09 17:20 | disposition home or self-care (01) ==
LOC: ERS 15:18
DX: K02.9 Dental caries, unspecified (principal); F17.290 Nicotine dependence, other tobacco product, uncomplicated
CPT/HCPCS: 96372; 99282; J1885

== ENCOUNTER 2022-02-19 21:48 | Emergency (ER) | payer SELFPAY ==
[2022-02-19] MEDS ORDERED: Ibuprofen 200 MG TAB ONE (23:12)
== END 2022-02-19 23:51 | disposition home or self-care (01) ==
LOC: ERS 21:48
DX: M54.50 Low back pain, unspecified (principal); F17.290 Nicotine dependence, other tobacco product, uncomplicated
CPT/HCPCS: 99283

== ENCOUNTER 2022-08-10 10:21 | Emergency (ER) | payer SELFPAY | END 2022-08-10 12:25 | disposition home or self-care (01) | LOC: ERS 10:21 | DX: U07.1 COVID-19 (principal); F17.290 Nicotine dependence, other tobacco product, uncomplicated | CPT/HCPCS: 99283; U0003; U0005 ==

== ENCOUNTER 2023-08-05 17:45 | Emergency (ER) | payer SELFPAY ==
[2023-08-05] MEDS ORDERED: Ketorolac Tromethamine 30 MG/ML VIAL ONE (18:10)
[2023-08-05] MEDS ORDERED: Metoclopramide HCl 10 MG TAB ONE (18:11)
[2023-08-05 19:02] LABS: SARS-CoV-2 NAA Rapid Test Not Detected (NotDetected)
== END 2023-08-05 19:05 | disposition home or self-care (01) ==
LOC: ERS 17:45
DX: J20.9 Acute bronchitis, unspecified (principal); Z20.822 Contact with and (suspected) exposure to COVID-19
CPT/HCPCS: 71045; J1885